=== PATIENT | male | born 1960 | race African-American/Black ===

== ENCOUNTER 2019-10-22 19:07 | Emergency (ER) | payer OTHER ==
[~2019-10-22] VITALS: Ht 172.7 cm; Wt 75.0 kg
[2019-10-22 19:10] VITALS: BP 150/100
== END 2019-10-22 20:05 | disposition home or self-care (01) ==
LOC: ER 19:07
DX: T40.991A Poisoning by other psychodysleptics [hallucinogens], accidental (unintentional), initial encounter (principal); Y92.89 Other specified places as the place of occurrence of the external cause
CPT/HCPCS: 93005; 99283